=== PATIENT | female | born 1960 | race African-American/Black ===

== ENCOUNTER 2017-11-17 15:53 | Outpatient (CLI) | payer OTHER | END 2017-11-17 15:54 | disposition home or self-care (01) | LOC: BICMAMMO 15:53 | PROVIDERS: ATTEND Family Medicine | DX: Z12.31 Encounter for screening mammogram for malignant neoplasm of breast (principal) | CPT/HCPCS: 77063; 77067 ==

== ENCOUNTER 2018-04-06 10:18 | Outpatient (CLI) | payer OTHER ==
--- NOTE | 2018-04-06 11:53 | RAD ---
PA AND LATERAL CHEST: Indication: History of chronic kidney disease. FINDINGS: There is cardiomegaly, pulmonary vascular congestion, small bilateral pleural effusions. No acute oss eous abnormality is evident. IMPRESSION: Findings of CHF or volume overload. POS: [facility]
== END 2018-04-06 10:19 | disposition home or self-care (01) ==
LOC: EKG 10:18
PROVIDERS: ATTEND Internal Medicine Nephrology
DX: N17.9 Acute kidney failure, unspecified (principal); I12.9 Hypertensive chronic kidney disease with stage 1 through stage 4 chronic kidney disease, or unspecified chronic kidney disease; N18.9 Chronic kidney disease, unspecified; J45.909 Unspecified asthma, uncomplicated; I25.10 Atherosclerotic heart disease of native coronary artery without angina pectoris; N39.0 Urinary tract infection, site not specified; J70.9 Respiratory conditions due to unspecified external agent; K21.9 Gastro-esophageal reflux disease without esophagitis; I07.1 Rheumatic tricuspid insufficiency
CPT/HCPCS: 71046; 93005; 93010; 93306

== ENCOUNTER 2018-09-12 14:58 | Outpatient (CLI) | payer OTHER ==
--- NOTE | 2018-09-12 16:17 | RAD ---
CHEST TWO VIEWS 09/12/18 HISTORY: Congestive heart failure. COMPARISON: 04/06/18. FINDINGS: Upper normal cardiac silhouette. Pulmonary vessels are within normal limits. There are patchy interst itial opacities. No consolidation or mass. No pleural effusion or pneumothorax. No osseous abnormalit ies. IMPRESSION: Mild interstitial prominence. Correlate for edema or infiltrate. Continued surveillance is recommende d. POS: [facility]
== END 2018-09-12 14:59 | disposition home or self-care (01) ==
LOC: BICRAD 14:58
PROVIDERS: ATTEND Family Medicine
DX: I50.9 Heart failure, unspecified (principal); R05 Cough
CPT/HCPCS: 71046

== ENCOUNTER 2018-11-23 08:36 | Outpatient (CLI) | payer OTHER ==
--- NOTE | 2018-11-26 13:41 | MMO ---
Bilateral MAMMO Bilat Screen [facility]. CLINICAL HISTORY: Patient is 58 years old and is seen for screening. The patient has no family history of breast cancer. The patient has no personal history of cancer. VIEWS: The views performed were: bilateral craniocaudal with tomosynthesis; bilateral mediolateral oblique with tomosynthesis; bilateral exaggerated craniocaudal; and right mediolateral oblique. FILMS COMPARED: The present examination has been compared to prior imaging studies performed at [facility] on 07/15/2010, 07/18/2011, 07/19/2012, 11/06/2014, 01/15/2016 and 11/17/2017. MAMMOGRAM FINDINGS: There are scattered fibroglandular densities. There are no suspicious masses, calcifications or areas of architectural distortion. IMPRESSION: THERE IS NO MAMMOGRAPHIC EVIDENCE OF MALIGNANCY. A ROUTINE FOLLOW-UP MAMMOGRAM IN 1 YEAR IS RECOMMENDED. THE RESULTS OF THIS EXAM WERE SENT TO THE PATIENT. ACR BI-RADS Category 1 - Negative MAMMOGRAPHY NOTE: 1. A negative mammogram report should not delay a biopsy if a dominant of clinically suspicious mass is present. 2. Approximately 10% to 15% of breast cancers are not detected by mammography. 3. Adenosis and dense breasts may obscure an underlying neoplasm.
== END 2018-11-23 08:37 | disposition home or self-care (01) ==
LOC: BICMAMMO 08:36
PROVIDERS: ATTEND Family Medicine
DX: Z12.31 Encounter for screening mammogram for malignant neoplasm of breast (principal)
CPT/HCPCS: 77063; 77067

== ENCOUNTER 2018-12-07 12:55 | Emergency (ER) | payer OTHER ==
--- NOTE | 2018-12-07 14:56 | RAD ---
RIGHT ANKLE 3 VIEWS: Date: 12/07/18 HISTORY: Right ankle pain. FINDINGS/IMPRESSION: Ankle mortise is maintained. No fracture, dislocation, or bony destruction is seen. POS: [facility]
--- NOTE | 2018-12-07 14:58 | RAD ---
RIGHT FOOT 3 VIEWS: Date: 12/07/18 HISTORY: Right foot pain. FINDINGS/IMPRESSION: No acute fracture, dislocation, or bony destruction identified. Plantar calcaneal spur is present. POS: [facility]
[2018-12-07] MEDS ORDERED: Ketorolac Tromethamine 30 MG/ML VIAL ONE (15:03)
== END 2018-12-07 15:14 | disposition home or self-care (01) ==
LOC: ERS 12:55
DX: M79.671 Pain in right foot (principal); E78.5 Hyperlipidemia, unspecified; I11.0 Hypertensive heart disease with heart failure; I50.9 Heart failure, unspecified; K21.9 Gastro-esophageal reflux disease without esophagitis
CPT/HCPCS: 96372; J1885

== ENCOUNTER 2019-10-22 11:04 | Outpatient (CLI) | payer OTHER ==
--- NOTE | 2019-10-22 11:20 | RAD ---
XR Chest Pa Lat STANDARD HISTORY: Mild intermittent asthma COMPARISON: 04/23/2019 FINDINGS: The heart size is at upper limits of normal. The lungs are well expanded without focal area s of consolidation, pneumothorax or pleural effusions. IMPRESSION: No radiographic evidence of acute cardiopulmonary process.
== END 2019-10-22 11:05 | disposition home or self-care (01) ==
LOC: BICRAD 11:04
PROVIDERS: ATTEND Family Medicine
DX: J45.20 Mild intermittent asthma, uncomplicated (principal)
CPT/HCPCS: 71046

== ENCOUNTER 2019-10-30 21:53 | Inpatient (IN) | payer OTHER ==
[2019-10-30] MEDS ORDERED: Ketorolac Tromethamine 30 MG/ML VIAL ONE (23:02)
[2019-10-30 23:15] LABS: Bacteria/HPF None Seen HPF (None Seen); Bilirubin Negative (Negative); Blood, Urine Negative (Negative); Clarity Clear (Clear); Glucose, Urine (Dipstick) Normal (Negative); Leukocyte 75 Leu/uL (Negative); Mucous/LPF Rare LPF (<2+); Nitrite Negative (Negative); Protein, Urine (Dipstick) Negative (Neg-Trace); RBC/HPF 0-3 HPF (0-3); Squamous Epithelial 0-3 HPF (0-3); Urobilinogen Normal mg/dL (Less than 2)
[2019-10-31] MEDS ORDERED: Ondansetron PF 4 MG/2 ML Vial ONE (00:35)
[2019-10-31] MEDS ORDERED: Acetaminophen 325 MG TAB PO PRN (01:57)
[2019-10-31] MEDS ORDERED: Ondansetron ODT 4 MG TAB PO PRN (01:57)
[2019-10-31] MEDS ORDERED: Ondansetron PF 4 MG/2 ML Vial IVP PRN (01:57)
[2019-10-31] MEDS ORDERED: PROVENTIL INHALER 6.7 G (200 INHALATIONS) INH PRN (02:15)
[2019-10-31] MEDS ORDERED: Sodium Chloride 0.9% 500 ML IV SCH (02:15)
[2019-10-31 02:34] VITALS: BMI 46.1
[2019-10-31 02:48] LABS: #Basophils 0.1 thou/uL (0.0-0.2); #Eosinphils 0.2 thou/uL (0.0-0.7); #Lymphocytes 3.1 thou/uL (1.20-3.40); #Monocytes 0.8 thou/uL (0.11-0.59); #Neutrophils 7.7 thou/uL (1.40-6.50); %Eosinophils 1.3 % (0.0-10.0); %Lymphocytes 26.1 % (21.0-51.0); %Monocytes 6.9 % (0.0-10.0); %Neutrophils 64.7 % (42.0-75.0); Hemoglobin 13.9 g/dL (12.0-16.0); Mean Corpuscular HGB CONC 32.2 g/dL (32.0-36.0); Mean Corpuscular Hemoglobin 28.5 pg (27.0-31.0); Mean Corpuscular Volume 88.7 fL (78.0-98.0); Mean Platelet Volume 9.7 fL (7.4-10.4); Platelet Count 275 thou/uL (130-400); RBC Distribution Width 14.2 % (11.5-14.5); Red Blood Cell (RBC) Count 4.88 mill/uL (4.20-5.40); White Blood Cell (WBC) Count 11.9 thou/uL (4.8-10.8)
[2019-10-31] MEDS: Sodium Chloride 0.9% 1,000 ML IV SCH ×3 (02:58→22:59)
[2019-10-31 03:12] LABS: Anion Gap 19 mmol/L (10-20); BUN (Urea Nitrogen) 102 mg/dL (9.8-20.1); Calc. Creatinine Clearance 35 mL/min (70-130); Calcium 9.4 mg/dL (7.8-10.44); Carbon Dioxide 19 mmol/L (22-29); Chloride 99 mmol/L (98-107); Estimated GFR-MDRD 21; Glucose 98 mg/dL (70-105); Potassium 4.8 mmol/L (3.5-5.1); Sodium 132 mmol/L (136-145)
--- NOTE | 2019-10-31 04:58 | HP ---
CHIEF COMPLAINT: Nausea and dizziness. HISTORY OF PRESENT ILLNESS: This patient is a 59-year-old female, who has a history of some mild diastolic dysfunction, some history of associated peripheral edema. The patient has had prior workup including echocardiograms in 2017, heart catheterization with Dr. Mendez, all of which were generally unremarkable other than a grade 1 diastolic dysfunction. The patient has a history of chronic kidney disease stage 3 to 4. Most recent GFR was in August of 2019 and was at 46. The patient has been following with Dr. Ivey and is on 80 mg of Lasix daily, which she says she has been taking. She was instructed to do some test and then follow up with him on the . She states she just got order in the mail for the test to be done. She presented to the emergency department today initially in [place]. She reports that she has had a couple of days of nausea, gagging, and dry heaving, but no actual vomiting. She also has some dizziness and lightheadedness, which seems to be worse upon standing. She denies any fevers, chills, abdominal pain, or diarrhea. She denies any ill contacts. She felt like she got worse today and therefore presented to the ER. She says she has been eating and drinking some, but she has been taking her medications compliantly. REVIEW OF SYSTEMS: No fevers or chills. No chest pains or palpitations. All other systems reviewed, all pertinent positives and negatives noted in history of present illness. PAST MEDICAL HISTORY: Notable for chronic diastolic heart failure grade 1, morbid obesity, history of noncalcified pulmonary nodules, history of pneumonia with sepsis, asthma, hypertension, dyslipidemia, depression. PAST SURGICAL HISTORY: and abdominal wall incision and drainage in 2011. FAMILY HISTORY: Notable for diabetes and heart disease in her father. SOCIAL HISTORY: The patient is a nonsmoker, nondrinker, nondrug user. She lives in [place] and she works at the [place] [employer]. 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 ALLERGIES: NONE. CURRENT MEDICATIONS: Include aspirin 81 mg daily, Lasix 80 mg daily, ProAir HFA 2 puffs q.4 hours p.r.n., Proventil 2 puffs q.4 hours p.r.n., lisinopril 10 mg daily, metoprolol 25 mg b.i.d., atorvastatin 20 mg daily, hydrochlorothiazide 25 mg daily, Aldactone 25 mg daily, vitamin D3 of 1000 units one p.o. daily, and allopurinol 100 mg p.o. daily. PHYSICAL EXAMINATION: VITAL SIGNS: On the initial visit in [place], the patient's blood pressure varied from a low of 82/49 to a high of 115/80. She was tachycardic from 100 to 111. She appeared to have normal oxygen saturations. GENERAL APPEARANCE: Morbidly obese female who appears slightly ill, but not in distress. She is awake, alert, pleasant, and cooperative. HEENT: PERRL. No OP lesions. NECK: Supple and symmetric. HEART: Regular rate and rhythm without murmurs, gallops, or rubs. LUNGS: Clear to auscultation bilaterally with good chest wall expansion and air exchange. ABDOMEN: Soft, nontender, and nondistended. Positive bowel sounds. No masses. No organomegaly. EXTREMITIES: No cyanosis, clubbing, or edema. PSYCHIATRIC: Normal affect and behavior. NEUROLOGICAL: The patient has normal cranial nerve function, relatively normal cognition. Moves spontaneously with no significant focal deficits. LABORATORY DATA: White count 13.4, hemoglobin 14.3, platelets 309. Sodium 132, potassium 4.8, chloride 94, CO2 of 21, BUN 105, creatinine 3.09, glucose 92, lactic acid 1.4, calcium 10.1, AST is 22, ALT is 29, alkaline phosphatase 37. CK 138, troponin less than 0.01. Albumin 4.4. Urinalysis is negative other than trace leukocyte esterase, 4 to 6 white cells, no bacteria and negative nitrites. Flu screen is negative. Chest x-ray is negative. Chest CT shows resolution of the prior pulmonary nodules. IMPRESSION AND PLAN: 1. Likely uremic encephalopathy causing some lightheadedness, dizziness, and nausea. We will treat symptomatically and address the underlying problem. 2. Acute on chronic renal failure. The patient appears to likely have severe prerenal azotemia, likely due to aggressive diuresis for diastolic dysfunction and peripheral edema. She is on high-dose Lasix, hydrochlorothiazide, and Aldactone. She is hypotensive and showing signs of uremia. She has had a liter and a half of fluid in the emergency department and I am going to give her another 500 mL bolus and give her fluids at 75 mL an hour. Obviously need to not be too fast given her underlying diastolic dysfunction. We will recheck her labs. If they are not promptly improving, we will consult Dr. Benitez, who is her parts cataloguer for further input. 3. Mild hyponatremia likely secondary to dehydration. 4. Mild acidosis, again likely related to the renal insufficiency and should improve with hydration. 5. Hypertension. We will likely be able to continue with her metoprolol and clonidine. However, given her blood pressures, we will hold off on those until she is able to demonstrate a more solid blood pressure. 6. History of diastolic failure, cautiously proceeding with fluid resuscitation. 7. History of asthma. We will give p.r.n. since she does not appear to have any acute exacerbation of symptoms. Job ID: [id number]
[2019-10-31] MEDS: Enoxaparin Sodium 40 MG/0.4 ML SYRINGE SC SCH (09:38)
--- NOTE | 2019-10-31 14:36 | PDOC.HOSPP ---
- Subjective Encounter Date: 10/31/19 Encounter Time: 14:33 Subjective: Ms. Merida was seen today in follow-up of nausea. She notes it after she ate lunch today. She denies any abdominal pain. She denies fever or chills. - Objective Vital Signs & Weight: Vital Signs (12 hours) Temp Pulse Resp BP Pulse Ox 10/31/19 11:42 98.0 F 105 H 15 93/50 L 93 L 10/31/19 08:05 97.8 F 104 H 19 119/60 97 10/31/19 04:50 97.9 F 104 H 16 90/54 L 96 Weight Admit Weight 228 lb 9.6 oz Weight 228 lb 9.6 oz Result Diagrams: 10/31/19 02:43 10/31/19 02:43 Hospitalist ROS - Medication Medications: Active Medications Generic Name Dose Route Start Last Admin Trade Name Freq PRN Reason Stop Dose Admin Acetaminophen 650 mg 10/31/19 01:57 10/31/19 09:40 Tylenol PO 650 mg Q4H PRN Administration Headache/Fever/Mild Pain (1-3) Enoxaparin Sodium 40 mg 10/31/19 09:00 10/31/19 09:38 Lovenox SC 40 mg 0900 RITCHIE Administration Sodium Chloride 1,000 mls @ 75 mls/hr 10/31/19 02:45 10/31/19 09:42 Normal Saline 0.9% IV 1,000 mls .[id number] RITCHIE Administration Ondansetron HCl 4 mg 10/31/19 01:57 10/31/19 11:04 Zofran Odt PO 4 mg Q6H PRN Administration Nausea/Vomiting - Exam Eye: PERRL Heart: RRR, no murmur, no gallops, no rubs, normal peripheral pulses Respiratory: CTAB, no wheezes, no rales, no ronchi, normal chest expansion, no tachypnea, normal percussion Gastrointestinal: soft, non-tender, non-distended, normal bowel sounds, no palpable masses, no hepatomegaly Extremities: no edema Hosp A/P (1) Bekcy-wi-ktnnbky kidney injury Code(s): N17.9 - ACUTE KIDNEY FAILURE, UNSPECIFIED; N18.9 - CHRONIC KIDNEY DISEASE, UNSPECIFIED Status: Acute (2) Nausea & vomiting Code(s): R11.2 - NAUSEA WITH VOMITING, UNSPECIFIED Status: Acute (3) HTN (hypertension) Code(s): I10 - ESSENTIAL (PRIMARY) HYPERTENSION Status: Chronic (4) Morbid obesity Code(s): E66.01 - MORBID (SEVERE) OBESITY DUE TO EXCESS CALORIES Status: Chronic (5) Asthma Code(s): J45.909 - UNSPECIFIED ASTHMA, UNCOMPLICATED Status: Chronic Qualifiers: Asthma severity: moderate persistent - Plan * Nausea- likely from uremia- but it has persisted- will check an abdominal ultrasound * Acute on chronic kidney injury- will continue IV fluids, and re-check her renal function this evening and in the AM * Chronic diastolic heart failure- compensated * HTN- blood pressure is low normal- continue IV hydration * Asthma- stable
[2019-10-31] MEDS ORDERED: Fluticasone Propionate HFA 44 MCG AER INH PRN (14:42)
[2019-10-31 16:27] LABS: Anion Gap 15 mmol/L (10-20); BUN (Urea Nitrogen) 88 mg/dL (9.8-20.1); Calc. Creatinine Clearance 37 mL/min (70-130); Carbon Dioxide 20 mmol/L (22-29); Chloride 103 mmol/L (98-107); Estimated GFR-MDRD 22; Glucose 127 mg/dL (70-105); Potassium 4.8 mmol/L (3.5-5.1); Sodium 133 mmol/L (136-145)
[2019-10-31] MEDS: Atorvastatin Calcium 20 MG TAB PO SCH (20:41)
[2019-11-01 05:28] LABS: Anion Gap 11 mmol/L (10-20); BUN (Urea Nitrogen) 74 mg/dL (9.8-20.1); Calc. Creatinine Clearance 44 mL/min (70-130); Calcium 8.3 mg/dL (7.8-10.44); Carbon Dioxide 23 mmol/L (22-29); Chloride 107 mmol/L (98-107); Estimated GFR-MDRD 26; Glucose 121 mg/dL (70-105); Potassium 4.8 mmol/L (3.5-5.1); Sodium 136 mmol/L (136-145)
[2019-11-01] MEDS: Enoxaparin Sodium 40 MG/0.4 ML SYRINGE SC SCH (08:37)
--- NOTE | 2019-11-01 09:06 | ULT ---
ABDOMINAL ULTRASOUND: HISTORY: Abdominal pain and nausea. FINDINGS: Real-time imaging of the upper abdomen was performed. The gallbladder appears contracted. The commo n duct is 4 mm. Technologist reports a negative ultrasound Asencio's sign. Visualized liver parenchy ma shows no abnormalities. The liver measures approximately 16.6 cm in length. The spleen is 9 cm. Right and left kidneys are within normal limits of size and not obstructed. Pancreas is largely obsc ured. Abdominal aorta and IVC regions are also partially obscured. IMPRESSION: 1. Somewhat technically difficult exam due to body habitus. 2. The gallbladder is contracted, but no definite stones identified. If clinically indicated, hepat obiliary scan may help in evaluating function. POS: [facility]
--- NOTE | 2019-11-01 13:57 | PDOC.HOSPP ---
- Subjective Encounter Date: 11/01/19 Encounter Time: 13:56 Subjective: Ms. Merida was seen today in follow-up of acute kidney injury. She says the nausea has improved. - Objective Vital Signs & Weight: Vital Signs (12 hours) Temp Pulse Resp BP Pulse Ox 11/01/19 11:44 98.5 F 107 H 18 118/69 95 11/01/19 07:43 98.0 F 102 H 24 H 126/60 97 11/01/19 04:25 98.3 F 106 H 15 112/57 L 94 L Weight Admit Weight 228 lb 9.6 oz Weight 228 lb 9.6 oz I&O: 10/31/19 11/01/19 11/02/19 06:59 06:59 06:59 Intake Total 3906 240 Balance 3906 240 Result Diagrams: 10/31/19 02:43 11/01/19 04:44 Hospitalist ROS - Medication Medications: Active Medications Generic Name Dose Route Start Last Admin Trade Name Freq PRN Reason Stop Dose Admin Acetaminophen 650 mg 10/31/19 01:57 10/31/19 09:40 Tylenol PO 650 mg Q4H PRN Administration Headache/Fever/Mild Pain (1-3) Atorvastatin Calcium 20 mg 10/31/19 21:00 10/31/19 20:41 Lipitor PO 20 mg HS RITCHIE Administration Enoxaparin Sodium 40 mg 10/31/19 09:00 11/01/19 08:37 Lovenox SC 40 mg 0900 RITCHIE Administration Sodium Chloride 1,000 mls @ 75 mls/hr 10/31/19 02:45 10/31/19 22:59 Normal Saline 0.9% IV 1,000 mls .[id number] RITCHIE Administration Ondansetron HCl 4 mg 10/31/19 01:57 10/31/19 11:04 Zofran Odt PO 4 mg Q6H PRN Administration Nausea/Vomiting - Exam Eye: PERRL, anicteric sclera Heart: RRR, no murmur, no gallops, no rubs, normal peripheral pulses Respiratory: CTAB, no wheezes, no rales, no ronchi, normal chest expansion, no tachypnea Gastrointestinal: soft, non-tender, non-distended, normal bowel sounds, no palpable masses, no hepatomegaly Extremities: no cyanosis, no edema Hosp A/P (1) Gkxjy-lr-yawfklr kidney injury Code(s): N17.9 - ACUTE KIDNEY FAILURE, UNSPECIFIED; N18.9 - CHRONIC KIDNEY DISEASE, UNSPECIFIED Status: Acute (2) Nausea & vomiting Code(s): R11.2 - NAUSEA WITH VOMITING, UNSPECIFIED Status: Acute (3) HTN (hypertension) Code(s): I10 - ESSENTIAL (PRIMARY) HYPERTENSION Status: Chronic (4) Morbid obesity Code(s): E66.01 - MORBID (SEVERE) OBESITY DUE TO EXCESS CALORIES Status: Chronic (5) Asthma Code(s): J45.909 - UNSPECIFIED ASTHMA, UNCOMPLICATED Status: Chronic Qualifiers: Asthma severity: moderate persistent - Plan * Nausea- likely from uremia- abdominal ultrasound was essentially negative, no gallstones, and her symptoms have improved * Acute on chronic kidney injury- will continue IV fluids, and reduce the IV fluid rate * She is not at her baseline renal function- and her Candy [employer] Machine has been consulted * Chronic diastolic heart failure- compensated * HTN- blood pressure- will re-start Metoprolol * Asthma- stable
[2019-11-01] MEDS: Sodium Chloride 0.9% 1,000 ML IV SCH (14:51)
[2019-11-01] MEDS: Atorvastatin Calcium 20 MG TAB PO SCH (21:17)
[2019-11-01] MEDS: Metoprolol Tartrate 25 MG TAB PO SCH (21:17)
[2019-11-02] MEDS: Enoxaparin Sodium 40 MG/0.4 ML SYRINGE SC SCH (08:47)
[2019-11-02] MEDS: Metoprolol Tartrate 25 MG TAB PO SCH (08:48)
[2019-11-02] MEDS ORDERED: Allopurinol 100 MG TAB PO SCH (09:00)
[2019-11-02] MEDS ORDERED: Aspirin Chewable 81 MG TAB PO SCH (09:00)
[2019-11-02 09:37] LABS: Hemoglobin 13.6 g/dL (12.0-16.0); Mean Corpuscular HGB CONC 32.5 g/dL (32.0-36.0); Mean Corpuscular Hemoglobin 29.7 pg (27.0-31.0); Mean Corpuscular Volume 91.3 fL (78.0-98.0); Mean Platelet Volume 9.3 fL (7.4-10.4); Platelet Count 207 thou/uL (130-400); RBC Distribution Width 14.3 % (11.5-14.5); Red Blood Cell (RBC) Count 4.58 mill/uL (4.20-5.40); White Blood Cell (WBC) Count 8.3 thou/uL (4.8-10.8)
[2019-11-02 10:05] LABS: Anion Gap 16 mmol/L (10-20); BUN (Urea Nitrogen) 35 mg/dL (9.8-20.1); Calc. Creatinine Clearance 73 mL/min (70-130); Calcium 9.2 mg/dL (7.8-10.44); Carbon Dioxide 17 mmol/L (22-29); Chloride 110 mmol/L (98-107); Estimated GFR-MDRD 48; Glucose 125 mg/dL (70-105); Sodium 138 mmol/L (136-145)
[2019-11-02] MEDS: Sodium Chloride 0.9% 1,000 ML IV SCH (13:27)
[2019-11-02 15:52] VITALS: BP 116/58; TEMP 98.2
[2019-11-02] MEDS ORDERED: Mometasone 100 MCG HFA INHALER INH SCH (18:30)
--- NOTE | 2019-11-02 19:57 | DIS ---
DATE OF ADMISSION: 10/31/2019 DATE OF DISCHARGE: 11/02/2019 DISCHARGE DIAGNOSES: Acute kidney injury, leukocytosis, hyponatremia, hypotension and tachycardia secondary to dehydration, right hepatic cyst CONSULTATIONS: None. PROCEDURES: None. BRIEF HISTORY OF PRESENT ILLNESS: This is a 59-year-old female with a history of diastolic heart failure, who presented to the hospital with nausea, dry heaving, dizziness and lightheadedness, which was worse upon standing. The patient states that she had started taking Lasix 80 mg daily prescribed by Dr. Ivey. She presented to the emergency room, where she was found to have slightly low blood pressure of 90/54, heart rate of 104, and a creatinine of 2.85. She also had a white count of 11.9 and a sodium of 132. UA was unremarkable. Troponin I was negative x3. The patient was admitted for acute kidney injury and IV hydration. HOSPITAL COURSE: 1. Acute renal failure: The patient presented with a creatinine of 2.85. She was given IV fluids and her creatinine came down to 1.38 on the day of discharge. Her baseline creatinine appears to be 1.2 to 1.4. The patient's lisinopril, Lasix, spironolactone, and hydrochlorothiazide were discontinued and she was continued on her oral metoprolol. The patient's blood pressure in the hospital was in the 90s and with IV fluids did not go above 115 systolic. On the day of discharge, the patient was told to stop taking her spironolactone, Lasix, hydrochlorothiazide and lisinopril and to continue her metoprolol. She should follow up with her PCP in a week with regard to her blood pressure and consider repeat renal function tests. 2. Hyponatremia: The patient presented with a sodium of 132. This improved to 138 with IV fluids. 3. Leukocytosis: The patient presented with a white count of 11.9, which resolved to 8.3 on the day of discharge. Urine culture was normal. 4. Nausea and vomiting: She had an abdominal ultrasound, which showed a contracted gallbladder, but no stones. LFTS were not done. Chest x-ray on admission which was unremarkable. She had a chest CT, which showed resolution of pulmonary nodules and no acute abnormality. . Her nausea resolved with treatment of her acute renal failure. The patient started a regular diet on 11/01. She states she has not had a bowel movement on the day of discharge, but she thinks she will since she just started eating. The patient had a urine culture, which was normal. 5. Right hepatic cyst: This is incidentally noted on CT of the thorax. This can be followed up as an outpatient. DISCHARGE PHYSICAL EXAMINATION: VITAL SIGNS: Temperature 97.8, heart rate 104, respiratory rate 19, O2 saturation 97% on room air, blood pressure 119/60. GENERAL: The patient is alert, awake, oriented x3. The patient is morbidly obese. CARDIOVASCULAR SYSTEM: Regular rate and rhythm with no murmurs, rubs, or gallops. ABDOMEN: Positive bowel sounds. Soft, nontender, and nondistended. EXTREMITIES: No edema. PERTINENT LABORATORY DATA: CBC on 11/02: Normal. BMP on 11/02: Chloride 110, bicarb 17, creatinine 1.38. Troponin I: 0.010 x3. UA on 10/30: Shows urine white blood cells 4 to 6, urine leukocyte esterase 75. Urine culture, no growth at 48 hours. PERTINENT IMAGING: Chest x-ray on 10/30: Hypoventilation. Stable cardiomegaly. Chest CT on 10/30: No acute cardiopulmonary abnormality. Multiple scattered pulmonary nodules and mediastinal lymphadenopathy have resolved. There is a stable cyst within the right hepatic lobe. Abdominal ultrasound on 11/01: Gallbladder is contracted with no definite stone. ACTIVITY: As tolerated. DIET: Heart healthy diet. DISCHARGE CONDITION: Stable. DISCHARGE MEDICATIONS: 1. Allopurinol 100 mg p.o. daily. 2. Atorvastatin 20 mg p.o. daily. 3. Cholecalciferol 25 mcg p.o. daily. 4. Metoprolol 25 mg p.o. b.i.d. 5. Aspirin 81 mg p.o. daily. 6. Fluticasone 110 mcg p.o. p.r.n. DISCONTINUED MEDICATIONS: 1. Spironolactone. 2. Lasix. 3. Lisinopril. 4. Hydrochlorothiazide. DISCHARGE INSTRUCTIONS: The patient was told to discontinue lisinopril, hydrochlorothiazide, Lasix, and spironolactone. She should follow up with her PCP in a week to recheck her blood pressure and have her kidney function repeated. Job ID: [id number] [facility]
--- NOTE | 2019-11-05 10:03 | PQF ---
ADELAIDA ESCOBAR SAI CHAN [id number] CLINICAL DOCUMENTATION CLARIFICATION FORM: POST DISCHARGE Addendum to original discharge summary date: ____ Late entry note date: __ DATE: 11/05/2019 ATTN: SAI CHAN Please exercise your independent, professional judgment in responding to the clarification form. Clinical indicators are provided on the bottom of this form for your review Please check appropriate box(s): [X ] Metaboli encephalopathy [ ] Encephalopathy NOS [ ] Other diagnosis [ ] Unable to determine For continuity of documentation, please document condition throughout progress notes and discharge summary. Thank You. CLINICAL INDICATORS - SIGNS / SYMPTOMS / LABS Likely uremic encephalopathy causing some lightheadedness, dizziness and nausea we will treat symptomatically and address the underlying problem-Documented in H &P on 10/31 by Reina Merida MD Acute on chronic renal failure -Documented in H&P on 10/31 by Reina Merida MD She is hypotensive -Documented in H&P on 10/31 by Reina Merida MD Hyponatremia likely secondary to dehydration -Documented in H&P on 10/31 by Reina Merida MD RISK FACTORS Acute on chronic renal failure -Documented in H&P on 10/31 by Reina Merida MD She is hypotensive -Documented in H&P on 10/31 by Reina Merida MD Hyponatremia likely secondary to dehydration -Documented in H&P on 10/31 by Reina Merida MD TREATMENTS: Sodium chloride 1000ml IV-Documented in Medication snapshot [employer] Win[employer] (This form is maintained as a part of the permanent medical record) 2014 [employer]. All Rights Reserved [email or web address] [phone] NADIA
== END 2019-11-02 17:51 | disposition home or self-care (01) | DRG 682 ==
LOC: ERS 21:53 → 2SE 10-31 01:37
PROVIDERS: ADMIT Internal Medicine; ATTEND Internal Medicine
DX: N17.9 Acute kidney failure, unspecified (principal); G93.41 Metabolic encephalopathy; E87.1 Hypo-osmolality and hyponatremia; I50.32 Chronic diastolic (congestive) heart failure; Z68.42 Body mass index [BMI] 45.0-49.9, adult; I13.0 Hypertensive heart and chronic kidney disease with heart failure and stage 1 through stage 4 chronic kidney disease, or unspecified chronic kidney disease; E87.2 Acidosis; I95.9 Hypotension, unspecified; E86.0 Dehydration; K76.89 Other specified diseases of liver; D72.829 Elevated white blood cell count, unspecified; R40.2362 Coma scale, best motor response, obeys commands, at arrival to emergency department; R40.2142 Coma scale, eyes open, spontaneous, at arrival to emergency department; R40.2252 Coma scale, best verbal response, oriented, at arrival to emergency department; E78.5 Hyperlipidemia, unspecified; K21.9 Gastro-esophageal reflux disease without esophagitis; E66.01 Morbid (severe) obesity due to excess calories; F32.9 Major depressive disorder, single episode, unspecified; Z87.01 Personal history of pneumonia (recurrent); J45.909 Unspecified asthma, uncomplicated; Z83.3 Family history of diabetes mellitus; Z82.49 Family history of ischemic heart disease and other diseases of the circulatory system; Z66 Do not resuscitate; N18.9 Chronic kidney disease, unspecified
CPT/HCPCS: 36415; 80048; 81003; 81015; 84484; 85025; 85027; 87086; 93975; 96374; 96375; J1650; J1885; J2405; Q0162

== ENCOUNTER 2019-11-06 04:43 | Emergency (ER) | payer OTHER ==
[2019-11-06] MEDS ORDERED: HYDROcodone/Acetaminophen 5/325 mg Tablet ONE (05:12)
[2019-11-06] MEDS ORDERED: Ibuprofen 200 MG TAB ONE (05:12)
== END 2019-11-06 05:20 | disposition home or self-care (01) ==
LOC: ERS 04:43
DX: L03.116 Cellulitis of left lower limb (principal); E78.5 Hyperlipidemia, unspecified; E78.00 Pure hypercholesterolemia, unspecified; J45.909 Unspecified asthma, uncomplicated; I11.0 Hypertensive heart disease with heart failure; I50.9 Heart failure, unspecified; K21.9 Gastro-esophageal reflux disease without esophagitis; Z79.82 Long term (current) use of aspirin; Z79.899 Other long term (current) drug therapy
CPT/HCPCS: 99283

== ENCOUNTER 2019-11-12 09:48 | Observation (INO) | payer OTHER, SELFPAY ==
[2019-11-12 10:27] LABS: #Eosinphils 0.7 thou/uL (0.0-0.7); #Lymphocytes 1.5 thou/uL (1.20-3.40); #Monocytes 0.6 thou/uL (0.11-0.59); #Neutrophils 3.4 thou/uL (1.40-6.50); %Basophils 0.3 % (0.0-1.0); %Eosinophils 11.8 % (0.0-10.0); %Lymphocytes 23.7 % (21.0-51.0); %Monocytes 9.9 % (0.0-10.0); %Neutrophils 54.3 % (42.0-75.0); Hemoglobin 13.4 g/dL (12.0-16.0); Mean Corpuscular HGB CONC 32.5 g/dL (32.0-36.0); Mean Corpuscular Volume 89.2 fL (78.0-98.0); Mean Platelet Volume 8.8 fL (7.4-10.4); Platelet Count 252 thou/uL (130-400); RBC Distribution Width 14.6 % (11.5-14.5); Red Blood Cell (RBC) Count 4.63 mill/uL (4.20-5.40); White Blood Cell (WBC) Count 6.3 thou/uL (4.8-10.8)
--- NOTE | 2019-11-12 10:33 | RAD ---
EXAM: Single view of the chest HISTORY: Rash and pain COMPARISON: 10/30/2019 FINDINGS: Single view of the chest shows an enlarged but stable cardiomediastinal silhouette. There i s no evidence of consolidation, mass, or pleural effusion. The bones are unremarkable. IMPRESSION: Cardiomegaly
[2019-11-12 10:55] LABS: ALT (SGPT) 76 U/L (8-55); AST (SGOT) 79 U/L (5-34); Albumin 3.8 g/dL (3.5-5.0); Alkaline Phosphatase 36 U/L (40-110); Anion Gap 14 mmol/L (10-20); BUN (Urea Nitrogen) 16 mg/dL (9.8-20.1); Bilirubin, Total 0.3 mg/dL (0.2-1.2); CK (CPK) 528 U/L (29-168); CRP (Inflammatory) 0.56 mg/dL (= or < 0.5); Calc. Creatinine Clearance 0 mL/min (70-130); Calcium 9.7 mg/dL (7.8-10.44); Carbon Dioxide 21 mmol/L (22-29); Chloride 108 mmol/L (98-107); Estimated GFR-MDRD 42; Glucose 99 mg/dL (70-105); Potassium 4.5 mmol/L (3.5-5.1); Protein, Total 6.8 g/dL (6.0-8.3); Sodium 138 mmol/L (136-145)
[2019-11-12] MEDS ORDERED: methylPREDNISolone Sod Succ/PF 125 MG/2 ML VIAL ONE (12:11)
[2019-11-12] MEDS ORDERED: Acetaminophen 500 MG TAB ONE (12:11)
[2019-11-12] MEDS ORDERED: Senokot S 8.6-50 MG TAB PO PRN (12:14)
[2019-11-12] MEDS ORDERED: Ondansetron ODT 4 MG TAB PO PRN (12:14)
[2019-11-12] MEDS ORDERED: Ondansetron PF 4 MG/2 ML Vial IVP PRN (12:14)
[2019-11-12] MEDS ORDERED: HYDROcodone/Acetaminophen 5/325 mg Tablet PO PRN (12:14)
[2019-11-12] MEDS ORDERED: Calcium Carbonate 500 MG ChewTAB PO PRN (12:14)
[2019-11-12] MEDS ORDERED: Acetaminophen 325 MG TAB PO PRN (12:14)
[2019-11-12] MEDS ORDERED: Loperamide HCl 2 MG CAP PO PRN (12:14)
[2019-11-12] MEDS ORDERED: HYDROcodone/Acetaminophen 7.5/325 mg Tablet PO PRN (12:14)
[2019-11-12] MEDS ORDERED: Labetalol HCl 100 MG/20 ML VIAL SLOW IVP PRN (12:18)
[2019-11-12] MEDS ORDERED: Docusate 100 MG CAP PO PRN (12:18)
[2019-11-12] MEDS ORDERED: diphenhydrAMINE 25 MG CAP PO PRN (12:18)
[2019-11-12] MEDS ORDERED: Melatonin 3 MG TAB PO PRN (12:18)
[2019-11-12] MEDS ORDERED: Benzonatate 100 MG CAP PO PRN (12:18)
--- NOTE | 2019-11-12 13:37 | PDOC.HHP ---
Hospitalist HPI - History of Present Illness Drug reaction History of Present Illness: Ms. Merida is a pleasant 59-year-old female with past medical history of diastolic congestive heart failure, chronic kidney disease stage IV, hypertension, hyperlipidemia, asthma, depression, and obesity who presents with lower extremity drug reaction. Patient recently was discharge from [facility] 10 days ago with renal insufficiency. She was stopped on diuretic therapy for her lower extremity edema. Patient did develop lower extremity cellulitis and was given a course of Bactrim sense discharge. This was last Monday when she started the Bactrim, on Monday she started developing a rash on her bilateral lower extremities. Originally the cellulitis was confined the left leg and this has improved to the point where it is no longer red, hot, or tender. The patient has completed a full course of Bactrim and she presents to the emergency department for evaluation of drug rash. Patient has a mild pinpoint type rash that is non palpable, on bilateral both legs. Patient has also been having bilateral redness of the eyes with associated tearing. Patient was admitted to medical unit for further evaluation. Hospitalist ROS - Review of Systems All other systems reviewed; all pertinent +/- noted in HPI/Subj Hospitalist History - Past Medical History Source: patient, old records Cardiac: reports: CHF, HTN, Hyperlipidemia Pulmonary: reports: asthma Musculoskeletal: reports: Osteoarthritis Dermatology: reports: Other - Past Surgical History Past Surgical History: reports: , Other (Abdominal wall I&D) - Family History Family History: reports: cardiac disorder, diabetes mellitus, hypertension - Social History Smoking Status: Never smoker Alcohol: reports: None Drugs: reports: none Living Situation: With Family Domestic Violence: Negative Activity level: independent ambulation - Exam General Appearance: NAD, awake alert Eye - other findings: Bilateral conjunctival injection. Tearing. Irritated eyes ENT: normocephalic atraumatic, moist mucosa Neck: supple, symmetric, no lymphadenopathy Heart: no murmur, no gallops, no rubs Respiratory: CTAB, no wheezes, no rales, no ronchi, normal chest expansion, no tachypnea Gastrointestinal: soft, non-tender, non-distended, no guarding, no rigidity Extremities: 1+ LE edema Extremities - other findings: Left lateral leg with chronic skin darkening - cellulitis has resolved Skin - other findings: Small pinpoint non papular bilateral rash LE. Primarily below the knee Neurological: cranial nerve grossly intact, no focal deficits Musculoskeletal: generalized weakness Psychiatric: normal affect, normal behavior, A&O x 3 Hospitalist Results - Labs Result Diagrams: 11/12/19 10:17 11/12/19 10:17 Lab results: WBC 6.3 thou/uL (4.8-10.8) 11/12/19 10:17 Hgb 13.4 g/dL (12.0-16.0) 11/12/19 10:17 Hct 41.3 % (36.0-47.0) 11/12/19 10:17 MCV 89.2 fL (78.0-98.0) 11/12/19 10:17 Plt Count 252 thou/uL (130-400) 11/12/19 10:17 Neutrophils % 54.3 % (42.0-75.0) 11/12/19 10:17 ESR Westergren 62 mm/hr (Less than 30) 11/12/19 10:17 Sodium 138 mmol/L (136-145) 11/12/19 10:17 Potassium 4.5 mmol/L (3.5-5.1) 11/12/19 10:17 Chloride 108 mmol/L (98-107) H 11/12/19 10:17 Carbon Dioxide 21 mmol/L (22-29) L 11/12/19 10:17 BUN 16 mg/dL (9.8-20.1) 11/12/19 10:17 Creatinine 1.53 mg/dL (0.6-1.1) H 11/12/19 10:17 Glucose 99 mg/dL (70-105) 11/12/19 10:17 Lactic Acid 1.0 mmol/L (0.5-2.2) 11/12/19 10:41 Calcium 9.7 mg/dL (7.8-10.44) 11/12/19 10:17 Total Bilirubin 0.3 mg/dL (0.2-1.2) 11/12/19 10:17 AST 79 U/L (5-34) H 11/12/19 10:17 ALT 76 U/L (8-55) H 11/12/19 10:17 Alkaline Phosphatase 36 U/L (40-110) L 11/12/19 10:17 Creatine Kinase 528 U/L (29-168) H 11/12/19 10:17 C-Reactive Protein 0.56 mg/dL (= or < 0.5) H 11/12/19 10:17 Serum Total Protein 6.8 g/dL (6.0-8.3) 11/12/19 10:17 Albumin 3.8 g/dL (3.5-5.0) 11/12/19 10:17 - Radiology Interpretation Chest x-ray Status: image reviewed by tx Hospitalist H&P A/P - Problem (1) Drug reaction Code(s): T50.905A - ADVERSE EFFECT OF UNSP DRUG/MEDS/BIOL SUBST, INIT Status: Acute (2) Rash Code(s): R21 - RASH AND OTHER NONSPECIFIC SKIN ERUPTION Status: Acute (3) Allergic reaction Code(s): T78.40XA - ALLERGY, UNSPECIFIED, INITIAL ENCOUNTER Status: Acute (4) Conjunctival injection Code(s): H11.439 - CONJUNCTIVAL HYPEREMIA, UNSPECIFIED EYE Status: Acute (5) Diastolic CHF Code(s): I50.30 - UNSPECIFIED DIASTOLIC (CONGESTIVE) HEART FAILURE Status: Acute (6) CKD (chronic kidney disease) stage 3, GFR 30-59 ml/min Code(s): N18.3 - CHRONIC KIDNEY DISEASE, STAGE 3 (MODERATE) Status: Acute (7) Asthma Code(s): J45.909 - UNSPECIFIED ASTHMA, UNCOMPLICATED Status: Chronic Qualifiers: Asthma severity: moderate persistent (8) HTN (hypertension) Code(s): I10 - ESSENTIAL (PRIMARY) HYPERTENSION Status: Chronic (9) Lung nodule, multiple Status: Chronic (10) Morbid obesity Code(s): E66.01 - MORBID (SEVERE) OBESITY DUE TO EXCESS CALORIES Status: Chronic - Plan Plan: Plan: Admit to Medical unit under observation Stop Bactrim, list as drug allergy from now on No LE cellulitis, has resolved with Bactrim Normal WBC Afebrile No continuation of ABX Symptomatic care for drug rash Conjunctival injection bilaterally, though vision intact Will add artificial tears Appears to be euvolemic at this time, will not give further IV fluids to avoid volume overload which she is prone to Will continue to hold diuretics CXR without pulmonary edema Chronic diastolic CHF, without acute exacerbation Continue other home medications as able GI PPX DVT PPX
[2019-11-12] MEDS: Heparin 5,000 UNITS/ML VIAL SC SCH ×2 (16:26→20:49)
[2019-11-12 16:30] VITALS: BMI 46.4
[2019-11-12] MEDS: Artificial Tears 18 DROP/0.9 ML EA EYE SCH ×2 (17:38→20:50)
[2019-11-12] MEDS: Mometasone 100 MCG HFA INHALER INH SCH (18:47)
[2019-11-12] MEDS: Metoprolol Tartrate 25 MG TAB PO SCH (20:50)
[2019-11-12] MEDS: Famotidine 20 MG TAB PO SCH (20:50)
[2019-11-13] MEDS: Artificial Tears 18 DROP/0.9 ML EA EYE SCH ×6 (02:04→20:39)
[2019-11-13 05:44] LABS: #Lymphocytes 1.8 thou/uL (1.20-3.40); #Monocytes 0.5 thou/uL (0.11-0.59); #Neutrophils 3.3 thou/uL (1.40-6.50); %Basophils 0.3 % (0.0-1.0); %Eosinophils 0.4 % (0.0-10.0); %Lymphocytes 31.3 % (21.0-51.0); %Monocytes 8.9 % (0.0-10.0); Hemoglobin 12.5 g/dL (12.0-16.0); Mean Corpuscular HGB CONC 32.1 g/dL (32.0-36.0); Mean Corpuscular Hemoglobin 28.6 pg (27.0-31.0); Mean Corpuscular Volume 89.3 fL (78.0-98.0); Mean Platelet Volume 8.9 fL (7.4-10.4); Platelet Count 253 thou/uL (130-400); RBC Distribution Width 14.5 % (11.5-14.5); Red Blood Cell (RBC) Count 4.37 mill/uL (4.20-5.40); White Blood Cell (WBC) Count 5.6 thou/uL (4.8-10.8)
[2019-11-13 06:07] LABS: Anion Gap 12 mmol/L (10-20); BUN (Urea Nitrogen) 20 mg/dL (9.8-20.1); Calc. Creatinine Clearance 80 mL/min (70-130); Calcium 9.2 mg/dL (7.8-10.44); Carbon Dioxide 19 mmol/L (22-29); Chloride 110 mmol/L (98-107); Estimated GFR-MDRD 53; Glucose 128 mg/dL (70-105); Potassium 4.7 mmol/L (3.5-5.1); Sodium 136 mmol/L (136-145)
[2019-11-13] MEDS: Mometasone 100 MCG HFA INHALER INH SCH ×2 (06:42→18:29)
[2019-11-13] MEDS: Famotidine 20 MG TAB PO SCH ×2 (09:03→20:39)
[2019-11-13] MEDS: Heparin 5,000 UNITS/ML VIAL SC SCH ×3 (09:03→20:38)
[2019-11-13] MEDS: Atorvastatin Calcium 20 MG TAB PO SCH (09:03)
[2019-11-13] MEDS: Aspirin Chewable 81 MG TAB PO SCH (09:03)
[2019-11-13] MEDS: Allopurinol 100 MG TAB PO SCH (09:03)
[2019-11-13] MEDS: Metoprolol Tartrate 25 MG TAB PO SCH ×2 (09:03→20:39)
[2019-11-13 09:34] LABS: ALT (SGPT) 79 U/L (8-55); AST (SGOT) 64 U/L (5-34); Albumin 3.3 g/dL (3.5-5.0); Alkaline Phosphatase 26 U/L (40-110); Bilirubin, Direct 0.1 mg/dL (0.1-0.3); Bilirubin, Total 0.2 mg/dL (0.2-1.2); Protein, Total 6.2 g/dL (6.0-8.3)
[2019-11-13] MEDS: Sodium Chloride 0.9% 1,000 ML IV SCH ×2 (10:03→18:37)
--- NOTE | 2019-11-13 13:33 | PDOC.HOSPP ---
- Subjective Encounter Date: 11/13/19 Encounter Time: 11:30 Subjective: Patient seen and examined. No new complaints. No overnight events - Objective Vital Signs & Weight: Vital Signs (12 hours) Temp Pulse Resp BP Pulse Ox 11/13/19 10:53 97 11/13/19 07:00 97.8 F 75 20 115/75 97 11/13/19 06:42 79 16 99 11/13/19 03:51 98.3 F 64 18 126/75 98 Weight Weight 230 lb I&O: 11/12/19 11/13/19 11/14/19 06:59 06:59 06:59 Intake Total 840 240 Balance 840 240 Result Diagrams: 11/13/19 05:34 11/13/19 05:34 Hospitalist ROS - Review of Systems ENT: denies: ear pain, ear discharge, nose pain, nose discharge, nose congestion , mouth pain, mouth swelling, throat pain, throat swelling, other Respiratory: denies: cough, dry, shortness of breath, hemoptysis, SOB with excertion, pleuritic pain, sputum, wheezing, other Cardiovascular: denies: chest pain, palpitations, orthopnea, paroxysmal noc. dyspnea, edema, light headedness, other Gastrointestinal: denies: nausea, vomiting, abdominal pain, diarrhea, constipation, melena, hematochezia, other Genitourinary: denies: dysuria, frequency, incontinence, hematuria, retention, other - Medication Medications: Active Medications Generic Name Dose Route Start Last Admin Trade Name Freq PRN Reason Stop Dose Admin Allopurinol 100 mg 11/13/19 09:00 11/13/19 09:03 Zyloprim PO 100 mg DAILY RITCHIE Administration Artificial Tears 2 drop 11/12/19 17:00 11/13/19 09:03 Tears Naturale EA EYE 2 drop Q4HR RITCHIE Administration Aspirin 81 mg 11/13/19 09:00 11/13/19 09:03 Aspirin Chewable PO 81 mg DAILY RITCHIE Administration Atorvastatin Calcium 20 mg 11/13/19 09:00 11/13/19 09:03 Lipitor PO 20 mg DAILY RITCHIE Administration Cholecalciferol 1,000 units 11/13/19 09:00 11/13/19 09:03 Vitamin D3 PO 1,000 units DAILY RITCHIE Administration Diphenhydramine HCl 25 mg 11/12/19 12:18 11/13/19 05:33 Benadryl PO 25 mg Q6H PRN Administration Itching & Insomnia Famotidine 20 mg 11/12/19 21:00 11/13/19 09:03 Pepcid PO 20 mg BID RITCHIE Administration Heparin Sodium (Porcine) 5,000 units 11/12/19 15:00 11/13/19 09:03 Heparin SC 5,000 units TID RITCHIE Administration Sodium Chloride 1,000 mls @ 100 mls/hr 11/13/19 09:15 11/13/19 10:03 Normal Saline 0.9% IV 1,000 mls .Q10H RITCHIE Administration Metoprolol Tartrate 25 mg 11/12/19 21:00 11/13/19 09:03 Lopressor PO 25 mg BID RITCHIE Administration Mometasone Furoate 1 puff 11/12/19 18:30 11/13/19 06:42 Asmanex Hfa 100 Mcg INH 1 puff BID-RT RITCHIE Administration - Exam General Appearance: NAD, awake alert Eye: PERRL, anicteric sclera ENT: normocephalic atraumatic, no oropharyngeal lesions Neck: supple, symmetric, no JVD, no thyromegaly Heart: RRR, no murmur, no gallops, no rubs Respiratory: CTAB, no wheezes, no rales, no ronchi Gastrointestinal: soft, non-tender, non-distended, normal bowel sounds Extremities: no cyanosis, no clubbing Skin: normal turgor, no lesions Neurological: no focal deficits Musculoskeletal: normal tone, normal strength Psychiatric: normal affect, normal behavior Hosp A/P (1) Allergic reaction Code(s): T78.40XA - ALLERGY, UNSPECIFIED, INITIAL ENCOUNTER Status: Acute (2) CKD (chronic kidney disease) stage 3, GFR 30-59 ml/min Code(s): N18.3 - CHRONIC KIDNEY DISEASE, STAGE 3 (MODERATE) Status: Acute (3) Conjunctival injection Code(s): H11.439 - CONJUNCTIVAL HYPEREMIA, UNSPECIFIED EYE Status: Acute (4) Diastolic CHF Code(s): I50.30 - UNSPECIFIED DIASTOLIC (CONGESTIVE) HEART FAILURE Status: Acute (5) Drug reaction Code(s): T50.905A - ADVERSE EFFECT OF UNSP DRUG/MEDS/BIOL SUBST, INIT Status: Acute (6) Rash Code(s): R21 - RASH AND OTHER NONSPECIFIC SKIN ERUPTION Status: Acute (7) Rkrty-yd-zszmapz kidney injury Code(s): N17.9 - ACUTE KIDNEY FAILURE, UNSPECIFIED; N18.9 - CHRONIC KIDNEY DISEASE, UNSPECIFIED Status: Acute (8) Asthma Code(s): J45.909 - UNSPECIFIED ASTHMA, UNCOMPLICATED Status: Chronic Qualifiers: Asthma severity: moderate persistent (9) HTN (hypertension) Code(s): I10 - ESSENTIAL (PRIMARY) HYPERTENSION Status: Chronic (10) Morbid obesity Code(s): E66.01 - MORBID (SEVERE) OBESITY DUE TO EXCESS CALORIES Status: Chronic - Plan old records reviewed/req consult ID for suspected DRESS continue IVF
--- NOTE | 2019-11-13 18:25 | CON ---
DATE OF CONSULTATION: REASON FOR CONSULTATION: Skin rash. HISTORY OF PRESENT ILLNESS: A 59-year-old with history of hypertension, asthma, CHF, and renal insufficiency, who had 3 admissions in 2015 with pulmonary decompensation associated with her asthma as well as a history of pulmonary nodules in the past. In 17, she had a cardiac catheterization when she presented with atypical chest pain, the coronary arteries were found to be normal. A followup CT showed resolution of the pulmonary nodules and mediastinal lymphadenopathy. She had been discharged on the allopurinol, although no specific diagnosis for that prescription was given in addition to her asthma medications. In the outpatient setting, she was recently diagnosed with cellulitis and the bases of the diagnosis with area of erythema and swelling with pain in the left lateral malleolus. The patient was given Bactrim and Keflex and developed progressive skin eruption, which started in the lower extremities and then extended to the upper extremities. Mouth and eyes with conjunctivitis. This was associated with pain. The antimicrobials were discontinued and the patient was admitted. Initial findings included BP 119/59, pulse 82, respirations 19, temperature 99.7, and O2 saturation 97. Conjunctivae were injected bilaterally. She had scattered erythema in the lower extremities with mild tenderness, which was nonblanching. Other findings included a white cell count 6.3, hemoglobin 13.4, and platelets 252 and chemistry with creatinine 1.53, which is pretty much her baseline. Uric acid has been elevated in the past. On admission, she had an abnormal liver function tests, but she has had those in the past up back to 2015 as well. Those are except for the ALT, which is elevated at this time, but not in the past. CK was elevated. The patient was given hydrocodone. Zyloprim was continued. Lipitor, Tessalon, Tums, vitamin D, Benadryl, Colace, Pepcid, Normodyne, Imodium, melatonin, and Lopressor. The rash seems to be improving steadily. Also the conjunctival and hyperemia has improved and oral cavity lesions have improved. No headaches. No shortness of breath or chest pain. No back pain. No abdominal pain or diarrhea. No genitourinary symptoms. The pain in the left lateral malleolus has improved as well. PAST MEDICAL HISTORY: Obesity, hypertension, hyperlipidemia, gout, hyperuricemia with presumptive gout, CHF, asthma, renal insufficiency, and CKD stage 3 to 4. SOCIAL HISTORY: Never smoker. No alcoholic beverage use. ALLERGIES: NONE. MEDICATIONS: Had been reviewed above. PHYSICAL EXAMINATION: SKIN: Shows the fading macular eruption in the lower extremities and upper extremities. Palmar and plantar surfaces are not involved. No purpura. No ulcers or other skin lesions. No lymphadenopathy. HEENT: Mild conjunctival hyperemia, which seems to be fading as well. Oral cavity is normal. NECK: Supple. No jugular vein distention. LUNGS: Symmetric clear breath sounds. HEART: S1 and S2. Regular rate. No S3 or S4. ABDOMEN: Soft, not distended or tender. No ascites. No bladder distention. EXTREMITIES: No joint inflammatory activity except for the left ankle, where the left lateral malleolus is tender to palpation. It is mildly to moderately swollen. Pulses are 1+ in dorsalis pedis. Plantar response are flexor. No clonus. Cognitive function appears to be intact. LABORATORY DATA: The latest labs have been reviewed above. Microbiology is not available . Urine cultures were negative. IMAGING: Chest x-ray with cardiomegaly. Abdominal ultrasound somewhat technically difficult exam. Gallbladder is contracted, but no stones identified. There is a chest CT from about 2 weeks ago with no acute cardiopulmonary abnormality. Multiple scattered pulmonary nodules and mediastinal lymphadenopathy resolved compared with previous findings. ASSESSMENT AND PLAN: 1. Obesity, hypertension, pulmonary nodules, and mediastinal lymphadenopathy, which appears to have resolved. 2. Likely gout which was mistreated as cellulitis recently elsewhere. 3. Hypersensitivity reaction to administered antimicrobials either Bactrim or Keflex. The presence of conjunctivitis and stomatitis would raise the possibility of Alonzo-Tomer syndrome or early Alonzo-Tomer syndrome/mild erythema multiforme. DRESS syndrome has been brought up as this is also possible, but less likely. She is on allopurinol, which can be associated with hypersensitivity reactions, but she does not appear to be that is less likely since the patient is improving while on allopurinol. The lung and mediastinal lymphadenopathy could be secondary to sarcoidosis. Sarcoid can sometimes be associated with skin manifestations, but that is less likely. Job ID: [id number]
[2019-11-14] MEDS: Artificial Tears 18 DROP/0.9 ML EA EYE SCH ×2 (00:32→05:09)
[2019-11-14] MEDS: Sodium Chloride 0.9% 1,000 ML IV SCH (05:10)
[2019-11-14] MEDS: Mometasone 100 MCG HFA INHALER INH SCH (07:17)
[2019-11-14] MEDS: Atorvastatin Calcium 20 MG TAB PO SCH (08:47)
[2019-11-14] MEDS: Allopurinol 100 MG TAB PO SCH (08:47)
[2019-11-14] MEDS: Metoprolol Tartrate 25 MG TAB PO SCH (08:47)
[2019-11-14] MEDS: Heparin 5,000 UNITS/ML VIAL SC SCH (08:47)
[2019-11-14] MEDS: Famotidine 20 MG TAB PO SCH (08:47)
[2019-11-14] MEDS: Aspirin Chewable 81 MG TAB PO SCH (08:47)
[2019-11-14] MEDS ORDERED: Artificial Tear Sol 15 ML BOT EA EYE SCH (09:00)
[2019-11-14 12:14] VITALS: BP 143/87; TEMP 97.7
--- NOTE | 2019-11-14 14:13 | DIS ---
DATE OF ADMISSION: 11/12/2019 DATE OF DISCHARGE: 11/14/2019 PRIMARY CARE PHYSICIAN: Dr. Phoebe Dye. DISCHARGE DISPOSITION: Home. PRIMARY DISCHARGE DIAGNOSES: 1. DRESS. 2. Acute on chronic kidney injury. 3. Abnormal LFT. 4. Allergic reaction with Bactrim. SECONDARY DISCHARGE DIAGNOSES: 1. Morbid obesity with BMI 46. 2. Hypertension. 3. Asthma. PRIMARY PROCEDURE/OPERATION: None. RADIOLOGICAL INVESTIGATION: Chest x-ray normal. SIGNIFICANT LABORATORY DATA: Eosinophil is 11.8, creatinine 1.26. AST 64, ALT 79, alkaline phosphatase 26, albumin 3.3. DISCHARGE MEDICATIONS: 1. Lipitor 20 mg daily. 2. Vitamin D3 one tablet daily. 3. Flovent inhalation as directed. 4. Lopressor 25 mg b.i.d. 5. Aspirin 81 mg daily. CONTRAINDICATION: None. CODE STATUS: DNR. INPATIENT CONTROL AND RECOVERY COMBAT RESCUE: Dr. Rm, Infection Diseases. TEST RESULTS PENDING ON DISCHARGE: None. ALLERGIES: SULFA DRUGS. DISCHARGE PLAN: Posthospital, the patient will follow up with primary care physician in 1 week. HOSPITAL COURSE: A 59-year-old female, who was recently treated for cellulitis with Bactrim. The patient has completely finished Bactrim therapy, but on the middle of course, the patient started developing rash, and despite that, the patient finished antibiotic course, but at the end of therapy, she came to emergency room for evaluation. The patient had slightly elevated eosinophil count and mild acute kidney injury and abnormal LFT, and she also had mild conjunctivitis and that is why we suspected DRESS. The patient was observed on the medical floor. We treated her symptomatically. She was given IV fluid. Her renal function improved. LFT was improving. The patient was continued on allopurinol while in hospital, but her rash did not improve and that is why we were not suspecting allopurinol-induced drug rash, but it was related with Bactrim DS. Dr. Rm was consulted for his opinion. The patient did not have any worsening and she started improving. We are not suspecting any Alonzo-Tomer syndrome. We have notified the patient that she is allergic to sulfa drugs and not to take anymore in future. PHYSICAL EXAMINATION: I have seen and examined the patient at bedside today. Her rash is significantly improved. The patient is completely asymptomatic. She does not have any conjunctivitis or any mucosal involvement. VITAL SIGNS: Her vitals are stable. Today, temperature 97.7, pulse 76, respiratory rate 18, saturation 98% on room air, blood pressure 143/87. Weight 230 pounds. GENERAL: The patient is alert, awake, in no acute distress. HEENT: Head, normocephalic and atraumatic. NECK: Supple. No JVD. No meningeal signs of irritation. LUNGS: Clear to auscultation without any rhonchi or rales. CARDIAC: S1 and S2 regular. No murmur. No gallop. No rub. ABDOMEN: Soft. Bowel sounds are present. Nontender. Nondistended. No organomegaly. No mass. EXTREMITIES: No edema. NEUROLOGIC: Nonfocal examination. The patient is medically stable for discharge today. Job ID: [id number]
== END 2019-11-14 12:37 | disposition home or self-care (01) ==
LOC: ERS 09:48 → ERHOLD 11:37 → T4-A 15:45
PROVIDERS: ADMIT Internal Medicine; ATTEND Internal Medicine
DX: L27.1 Localized skin eruption due to drugs and medicaments taken internally (principal); T36.8X5A Adverse effect of other systemic antibiotics, initial encounter; I13.0 Hypertensive heart and chronic kidney disease with heart failure and stage 1 through stage 4 chronic kidney disease, or unspecified chronic kidney disease; N18.4 Chronic kidney disease, stage 4 (severe); I50.32 Chronic diastolic (congestive) heart failure; N17.9 Acute kidney failure, unspecified; R94.5 Abnormal results of liver function studies; E78.5 Hyperlipidemia, unspecified; F32.9 Major depressive disorder, single episode, unspecified; M19.90 Unspecified osteoarthritis, unspecified site; J45.40 Moderate persistent asthma, uncomplicated; R91.8 Other nonspecific abnormal finding of lung field; E79.0 Hyperuricemia without signs of inflammatory arthritis and tophaceous disease; H11.433 Conjunctival hyperemia, bilateral; E66.01 Morbid (severe) obesity due to excess calories; Z68.42 Body mass index [BMI] 45.0-49.9, adult; Z66 Do not resuscitate; Z79.82 Long term (current) use of aspirin; Z79.899 Other long term (current) drug therapy; Z88.2 Allergy status to sulfonamides
CPT/HCPCS: 36415; 71045; 80048; 80053; 80076; 82550; 83605; 85025; 85652; 86140; 96361; 96372; 96374; G0378; J1644; J2930; Q0163

== ENCOUNTER 2019-11-26 09:21 | Outpatient (CLI) | payer OTHER ==
--- NOTE | 2019-11-26 10:27 | MMO ---
Bilateral MAMMO Bilat Screen [facility]. CLINICAL HISTORY: Patient is 59 years old and is seen for screening. The patient has no family history of breast cancer. The patient has no personal history of cancer. VIEWS: The views performed were: bilateral craniocaudal; bilateral craniocaudal with tomosynthesis; bilateral mediolateral oblique; and bilateral mediolateral oblique with tomosynthesis. FILMS COMPARED: The present examination has been compared to prior imaging studies performed at [facility] on 01/15/2016, 11/17/2017 and 11/23/2018. This study has been interpreted with the assistance of computer-aided detection. MAMMOGRAM FINDINGS: There are scattered fibroglandular densities. There are stable benign appearing calcifications seen in both breasts. There are no suspicious masses, suspicious calcifications, or new areas of architectural distortion. IMPRESSION: THERE IS NO MAMMOGRAPHIC EVIDENCE OF MALIGNANCY. A ROUTINE FOLLOW-UP MAMMOGRAM IN 1 YEAR IS RECOMMENDED. THE RESULTS OF THIS EXAM WERE SENT TO THE PATIENT. ACR BI-RADS Category 2 - Benign finding MAMMOGRAPHY NOTE: 1. A negative mammogram report should not delay a biopsy if a dominant of clinically suspicious mass is present. 2. Approximately 10% to 15% of breast cancers are not detected by mammography. 3. Adenosis and dense breasts may obscure an underlying neoplasm. Reported by: YARELI LU MD Electonically Signed: [id number]
== END 2019-11-26 09:22 | disposition home or self-care (01) ==
LOC: BICMAMMO 09:21
PROVIDERS: ATTEND Family Medicine
DX: Z12.31 Encounter for screening mammogram for malignant neoplasm of breast (principal)
CPT/HCPCS: 77063; 77067

== ENCOUNTER 2025-05-16 10:52 | Inpatient (IN) | payer OTHER ==
[2025-05-16 12:17] VITALS: BMI 38.3
[2025-05-16] MEDS ORDERED: hydrALAZINE 20 MG/ML VIAL SLOW IVP PRN (15:09)
[2025-05-16] MEDS ORDERED: Ondansetron PF 4 MG/2 ML Vial IVP PRN (15:09)
[2025-05-16] MEDS: LevoFLOXacin 750 mg/D5W 750 MG in Premix 1 BAG IVPB SCH (15:39)
[2025-05-16] MEDS: Ketorolac Tromethamine 30 MG (1 mL) VIAL IVP PRN (15:43)
[2025-05-16] MEDS: Acetaminophen 500 MG TAB PO PRN (15:52)
[2025-05-16 16:09] LABS: Anion Gap 21 mmol/L (10-20); BUN (Urea Nitrogen) 26 mg/dL (9.8-20.1); Calc. Creatinine Clearance 50 mL/min (70-130); Calcium 9.0 mg/dL (7.8-10.44); Carbon Dioxide 12 mmol/L (23-31); Chloride 111 mmol/L (98-107); Glucose 138 mg/dL (80-115); Potassium 5.1 mmol/L (3.5-5.1); Sodium 139 mmol/L (136-145)
[2025-05-16] MEDS ORDERED: PHENYLEPHRINE-NS 100 MCG/ML 10 ML SYRINGE ONE (18:00)
[2025-05-16] MEDS ORDERED: Lidocaine 1% PF 5 ML VIAL ONE (18:00)
[2025-05-16] MEDS ORDERED: fentaNYL PF 100 MCG/2 ML SYRINGE ONE (18:00)
[2025-05-16] MEDS ORDERED: PROPOFOL 20 ML ONE (18:00)
[2025-05-16 20:33] VITALS: BMI 38.3
[2025-05-16] MEDS: Famotidine 20 MG TAB PO SCH (21:16)
[2025-05-17 05:53] LABS: ALT (SGPT) 31 U/L (Less than 34); AST (SGOT) 47 U/L (11-34); Albumin 2.6 g/dL (3.1-4.5); Alkaline Phosphatase 34 U/L (40-110); Anion Gap 13 mmol/L (10-20); BUN (Urea Nitrogen) 24 mg/dL (9.8-20.1); Bilirubin, Total 1.0 mg/dL (0.3-1.2); Calc. Creatinine Clearance 61 mL/min (70-130); Calcium 8.5 mg/dL (7.8-10.44); Carbon Dioxide 19 mmol/L (23-31); Chloride 112 mmol/L (98-107); Globulin 3.4 g/dL (2.4-3.5); Glucose 103 mg/dL (80-115); Potassium 4.1 mmol/L (3.5-5.1); Sodium 140 mmol/L (136-145)
[2025-05-17 05:55] LABS: #Basophils 0.04 10x3/uL (0.0-0.2); #Eosinophils 0.14 10x3/uL (0.0-0.7); #Monocytes 1.31 10x3/uL (0.11-0.59); #Neutrophils 11.63 10x3/uL (1.40-6.50); %Basophils 0.3 % (0.0-1.0); %Eosinophils 0.9 % (0.0-10.0); %Lymphocytes 14.1 % (21.0-51.0); %Monocytes 8.5 % (0.0-10.0); %Neutrophils 75.6 % (42.0-75.0); Hematocrit 40.5 % (36.0-47.0); Hemoglobin 12.5 g/dL (12.0-16.0); Mean Corpuscular Hemoglobin 27.2 pg (27.0-31.0); Mean Corpuscular Volume 88.2 fL (78.0-98.0); Platelet Count 112 10x3/uL (130-400); Red Blood Cell (RBC) Count 4.59 mill/uL (4.20-5.40); White Blood Cell (WBC) Count 15.37 10x3/uL (4.8-10.8)
[2025-05-17 06:21] LABS: Platelet Adequacy Comment Platelets Decreased
[2025-05-17] MEDS: predniSONE 20 MG TAB PO SCH (09:40)
[2025-05-17] MEDS: Metoprolol Succinate XL 25 MG ER.TAB PO SCH (09:40)
[2025-05-17] MEDS: PNEUMOC 20-VAL CONJ-DIP CRM/PF 0.5 ML SYRINGE IM ONE (09:41)
[2025-05-18 06:14] LABS: #Basophils 0.03 10x3/uL (0.0-0.2); #Eosinophils 0.11 10x3/uL (0.0-0.7); #Monocytes 0.78 10x3/uL (0.11-0.59); #Neutrophils 7.86 10x3/uL (1.40-6.50); %Basophils 0.3 % (0.0-1.0); %Eosinophils 1.0 % (0.0-10.0); %Lymphocytes 17.2 % (21.0-51.0); %Monocytes 7.3 % (0.0-10.0); %Neutrophils 73.7 % (42.0-75.0); Hematocrit 41.6 % (36.0-47.0); Hemoglobin 12.9 g/dL (12.0-16.0); Mean Corpuscular Hemoglobin 27.2 pg (27.0-31.0); Mean Corpuscular Volume 87.8 fL (78.0-98.0); Platelet Count 115 10x3/uL (130-400); Red Blood Cell (RBC) Count 4.74 mill/uL (4.20-5.40); White Blood Cell (WBC) Count 10.67 10x3/uL (4.8-10.8)
[2025-05-18 06:31] LABS: Anion Gap 12 mmol/L (10-20); BUN (Urea Nitrogen) 19 mg/dL (9.8-20.1); Calc. Creatinine Clearance 65 mL/min (70-130); Calcium 9.1 mg/dL (7.8-10.44); Carbon Dioxide 21 mmol/L (23-31); Chloride 113 mmol/L (98-107); Glucose 96 mg/dL (80-115); Magnesium 2.0 mg/dL (1.6-2.6); Potassium 3.8 mmol/L (3.5-5.1); Sodium 142 mmol/L (136-145)
[2025-05-18] MEDS: LevoFLOXacin 750 mg/D5W 750 MG in Premix 1 BAG IVPB SCH (16:46)
[2025-05-19 05:42] LABS: #Basophils Less than 0.03 10x3/uL (0.0-0.2); #Eosinophils 0.06 10x3/uL (0.0-0.7); #Monocytes 0.63 10x3/uL (0.11-0.59); #Neutrophils 7.13 10x3/uL (1.40-6.50); %Basophils 0.2 % (0.0-1.0); %Eosinophils 0.6 % (0.0-10.0); %Lymphocytes 23.3 % (21.0-51.0); %Monocytes 6.1 % (0.0-10.0); %Neutrophils 69.4 % (42.0-75.0); Hematocrit 44.7 % (36.0-47.0); Hemoglobin 13.6 g/dL (12.0-16.0); Mean Corpuscular Hemoglobin 26.8 pg (27.0-31.0); Mean Corpuscular Volume 88.2 fL (78.0-98.0); Platelet Count 138 10x3/uL (130-400); Red Blood Cell (RBC) Count 5.07 mill/uL (4.20-5.40); White Blood Cell (WBC) Count 10.28 10x3/uL (4.8-10.8)
[2025-05-19 05:49] LABS: Anion Gap 13 mmol/L (10-20); BUN (Urea Nitrogen) 18 mg/dL (9.8-20.1); Calc. Creatinine Clearance 75 mL/min (70-130); Calcium 9.4 mg/dL (7.8-10.44); Carbon Dioxide 19 mmol/L (23-31); Chloride 112 mmol/L (98-107); Glucose 94 mg/dL (80-115); Magnesium 1.8 mg/dL (1.6-2.6); Potassium 3.8 mmol/L (3.5-5.1); Sodium 140 mmol/L (136-145)
[2025-05-19] MEDS: Pantoprazole 40 MG DR.TAB PO SCH (09:26)
[2025-05-19] MEDS: Lisinopril 20 MG TAB PO SCH (09:26)
[2025-05-19 15:50] VITALS: BP 139/92; TEMP 98
== END 2025-05-19 16:15 | disposition home or self-care (01) | DRG 854 ==
LOC: SURG A 11:30
PROVIDERS: ADMIT Family Medicine; ATTEND Internal Medicine
PROC: 0T768DZ Dilation of Right Ureter with Intraluminal Device, Via Natural or Artificial Opening Endoscopic (ICD-10-PCS; principal; 2025-05-16)
PROC: 0T9B8ZZ Drainage of Bladder, Via Natural or Artificial Opening Endoscopic (ICD-10-PCS; 2025-05-16)
PROC: BT1D1ZZ Fluoroscopy of Right Kidney, Ureter and Bladder using Low Osmolar Contrast (ICD-10-PCS; 2025-05-16)
DX: A41.59 Other Gram-negative sepsis (principal); I13.0 Hypertensive heart and chronic kidney disease with heart failure and stage 1 through stage 4 chronic kidney disease, or unspecified chronic kidney disease; N17.9 Acute kidney failure, unspecified; N13.6 Pyonephrosis; J98.11 Atelectasis; K76.0 Fatty (change of) liver, not elsewhere classified; K74.60 Unspecified cirrhosis of liver; E66.01 Morbid (severe) obesity due to excess calories; I50.9 Heart failure, unspecified; E87.5 Hyperkalemia; N20.0 Calculus of kidney; E78.5 Hyperlipidemia, unspecified; K21.9 Gastro-esophageal reflux disease without esophagitis; N18.9 Chronic kidney disease, unspecified; B96.4 Proteus (mirabilis) (morganii) as the cause of diseases classified elsewhere; Z87.442 Personal history of urinary calculi; Z87.440 Personal history of urinary (tract) infections; Z98.890 Other specified postprocedural states; Z79.899 Other long term (current) drug therapy; Z79.84 Long term (current) use of oral hypoglycemic drugs; Z88.2 Allergy status to sulfonamides
CPT/HCPCS: 36415; 36416; 71045; 74420; 80048; 80053; 83036; 83735; 83880; 85025; C2617; J1885; J1956; J2704; J7030; J7500; J7512; Q9967

== ENCOUNTER 2025-07-31 10:03 | Outpatient (CLI) | payer OTHER | END 2025-07-31 10:04 | disposition home or self-care (01) | LOC: BICRAD 10:03 | PROVIDERS: ATTEND Family Medicine | DX: R05.1 Acute cough (principal) | CPT/HCPCS: 71046 ==